=== PATIENT | female | born 1930 | race Caucasian/White ===

== ENCOUNTER 2016-11-28 20:14 | Emergency (ER) | payer SELFPAY ==
[~2016-11-28] VITALS: Ht 137.2 cm; Wt 58.0 kg
[2016-11-28 20:18] VITALS: Ht 137.2 cm; Wt 58.0 kg
--- NOTE | 2016-11-28 21:34 | ERA ---
ER Documentation Chief Complaint Date/Time DATE: 11/28/16 TIME: 21:33 Chief Complaint Back pain HPI The patient is a 86-year-old female, presenting to the ER because of lower back pain after she fell yesterday. She denies any fever, chills, headache, facial pain, neck pain, chest pain, dyspnea, abdominal pain, vomiting, dysuria, diarrhea. She does not smoke or drink Past medical history: Diabetes mellitus, CAD, hypertension Past surgical history: None ROS All systems reviewed and are negative except as per history of present illness. Medications Home Meds Active Scripts Ibuprofen* (Motrin*) 400 Mg Tab, 400 MG PO Q6H Y for PAIN AND OR ELEVATED TEMP, #30 TAB Prov:SYD ALEJANDRA MD 11/29/16 Sulfamethoxazole/Trimethoprim* (Bactrim Ds* Tablet) 1 Each Tablet, 1 TAB PO BID , #20 TAB Prov:SYD ALEJANDRA MD 11/29/16 Allergies Allergies: Coded Allergies: Penicillins (Verified Allergy, Unknown, rash, 11/28/16) Physical Exam Vitals Vital Signs Date Time Temp Pulse Resp B/P Pulse Ox O2 Delivery O2 Flow Rate FiO2 11/29/16 00:55 72 18 176/68 97 Room Air 11/28/16 23:40 81 18 183/75 95 11/28/16 22:11 Nasal Cannula 3 11/28/16 21:42 84 18 189/82 97 Room Air 11/28/16 20:18 100.9 108 17 192/88 94 Physical Exam Const: No acute distress. Head: Atraumatic. Eyes: Normal Conjunctiva. ENT: Normal External Ears, Nose and Mouth. Neck: Full range of motion. No meningismus. Resp: Clear to auscultation bilaterally. Cardio: Regular rate and rhythm, no murmurs. Abd: Soft, non distended, normal bowel sounds, non tender. Skin: No petechiae or rashes. Back: No midline or flank tenderness. Minimal lumbar tenderness, no erythema, no crepitus Ext: No cyanosis, or edema. Neur: Awake and alert. No focal deficit Psych: Normal Mood and Affect. Result Diagram: 11/28/16219911/28/162199 Results 24 hrs Laboratory Tests Test 11/28/16 00:25 11/28/16 21:41 11/28/16 22:00 11/28/16 23:34 Lactic Acid Level 1.4mmol/L 1.8mmol/L Prothrombin Time 12.2Sec Prothrombin Time Ratio 1.0 INR International Normalized Ratio 0.91 Activated Partial Thromboplast Time 22.7Sec White Blood Count 8.310^3/ul Red Blood Count 3.9810^6/ul Hemoglobin 11.7g/dl Hematocrit 36.0% Mean Corpuscular Volume 90.5fl Mean Corpuscular Hemoglobin 29.4pg Mean Corpuscular Hemoglobin Concent 32.5g/dl Red Cell Distribution Width 13.1% Platelet Count 78795^3/UL Mean Platelet Volume 11.0fl Neutrophils % 72.3% Lymphocytes % 18.7% Monocytes % 6.9% Eosinophils % 1.3% Basophils % 0.2% Nucleated Red Blood Cells % 0.0/100WBC Neutrophils # 6.010^3/ul Lymphocytes # 1.610^3/ul Monocytes # 0.610^3/ul Eosinophils # 0.110^3/ul Basophils # 0.010^3/ul Nucleated Red Blood Cells # 0.010^3/ul Sodium Level 137mmol/L Potassium Level 4.3mmol/L Chloride Level 98mmol/L Carbon Dioxide Level 26mmol/L Anion Gap 17 Blood Urea Nitrogen 28mg/dl Creatinine 0.84mg/dl Glucose Level 255mg/dl Calcium Level 9.5mg/dl Total Bilirubin 0.3mg/dl Direct Bilirubin 0.00mg/dl Indirect Bilirubin 0.3mg/dl Aspartate Amino Transf (AST/SGOT) 20IU/L Alanine Aminotransferase (ALT/SGPT) 24IU/L Alkaline Phosphatase 129IU/L Troponin I < 0.012ng/ml Total Protein 8.3g/dl Albumin 4.3g/dl Globulin 4.00g/dl Albumin/Globulin Ratio 1.07 Urine Color LT. YELLOW Urine Clarity CLEAR Urine pH 7.0 Urine Specific [place] 1.010 Urine Ketones NEGATIVE Urine Nitrite NEGATIVE Urine Bilirubin NEGATIVE Urine Urobilinogen 0.2 E.U./dL Urine Leukocyte Esterase 1+ Urine Microscopic RBC 0-2/HPF Urine Microscopic WBC 5-10/HPF Urine Squamous Epithelial Cells RARE Urine Hemoglobin NEGATIVE Urine Glucose >=1000% Urine Total Protein NEGATIVE Test 11/28/16 23:54 Bedside Urine pH (LAB) 7.0 Bedside Urine Protein (LAB) Negative Bedside Urine Glucose (UA) 0.50% Bedside Urine Ketones (LAB) Negative Bedside Urine Blood Negative Bedside Urine Nitrite (LAB) Negative Bedside Urine Leukocyte Esterase (L 1+ Current Medications Medications (Trade) Dose Ordered Sig/Jessica Route PRN Reason Start Time Stop Time Status Last Admin Dose Admin Acetaminophen (Tylenol Tab) 650 mg ONCE STAT PO 11/28/16 21:41 11/28/16 21:43 DC 11/28/16 21:50 Procedures/MDM [place] [id number] Radiology Main Line: [phone] DIAGNOSTIC IMAGING REPORT Patient: BRYN BUSTOS : 1930 Age: 86 Sex: F MR #: [id number] DOS: 11/28/16 214 Ordering MD: SYD ALEJANDRA MD Location: E/R Room/Bed: PROCEDURE: CT lumbar spine without contrast CLINICAL INDICATION: Back pain. TECHNIQUE: A CT scan of the lumbar spine was performed without intravenous contrast. Coronal and sagittal reformatted images were generated. CTDIvol: 16.06 mGy. DLP: 411.71 mGy-cm. One or more of the following dose reduction techniques were used: - Automated exposure control. - Adjustment of the mA and/or kV according to patient size. - Use of iterative reconstruction technique. COMPARISON: None. FINDINGS: The lumbar lordosis is preserved. The vertebral body heights are maintained. Bone mineralization is normal and there is no suspicious osseous lesion. No acute fracture or subluxation is identified. T12-L1: There is minimal vacuum disk phenomenon and anterior disk bulging, but no posterior disk herniation. No spinal canal stenosis or neural foraminal narrowing is identified L1-L2: There is grade 1 degenerative L1 retrolisthesis (4 mm). There is minimal vacuum disk phenomenon and circumferential disk bulging, but no spinal canal stenosis. Mild left neural foraminal narrowing is noted due to disk bulging. L2-L3: There is herniation is seen. There is no spinal canal stenosis. Mild left neural foraminal narrowing is noted due to osteophyte. L3-L4: Circumferential disk bulging leads to mild spinal canal stenosis (9 mm AP canal diameter). There is minimal bilateral neural foraminal narrowing due to disk bulging. L4-L5: Posterior disk bulging and ligamentum flavum thickening lead to moderate spinal canal stenosis (7 mm canal diameter). Mild to moderate bilateral facet arthrosis is also noted. There is mild to moderate bilateral neural foraminal narrowing due to disk bulging and facet arthrosis. L5-S1: There is grade 1 degenerative L5 anterolisthesis (4 mm). Moderate disk space narrowing, vacuum disk phenomenon, circumferential disk bulging are noted. There is no spinal canal stenosis. Moderate bilateral facet arthrosis, disk bulging, and endplate osteophytosis, leading to moderate bilateral neural foraminal narrowing. There are mild arterial calcifications. IMPRESSION: 1. No acute lumbar spine fracture or subluxation. 2. Multilevel degenerative changes, described in detail in the findings. 3. Mild spinal canal stenosis at L3-L4. 4. Moderate spinal canal stenosis at L4-L5. 5. Moderate bilateral neural foraminal narrowing at L5-S1. RPTAT: HTAR .David Maddox MD, MD Date Time Electronically viewed and signed by .David Maddox MD, MD on 11/28/2016 22:57 .R/ CC: SYD ALEJANDRA MD [place] [id number] Radiology Main Line: [phone] DIAGNOSTIC IMAGING REPORT Patient: BRYN BUSTOS : 1930 Age: 86 Sex: F MR #: [id number] DOS: 11/28/16 2141 Ordering MD: SYD ALEJANDRA MD Location: E/R Room/Bed: PROCEDURE: Portable chest x-ray. CLINICAL INDICATION: Sepsis. TECHNIQUE: Portable AP view of the chest. COMPARISON: None. FINDINGS: There are low lung volumes, limiting evaluation of the pulmonary vessels and heart size. No pulmonary edema or conolidation is identified. The cardiac silhouette is magnified. No pleural effusion is seen. There is no pneumothorax. IMPRESSION: 1. No evidence of acute cardiopulmonary disease. RPTAT: HTAR .David Maddox MD, Date Time Electronically viewed and signed by .David Maddox MD, MD on 11/28/2016 22:50 .R/ CC: SYD ALEJANDRA MD EKG: Read by emergency physician Rate/Rhythm: Normal Sinus Rhythm 82 beats/min QRS, ST, T-waves: No ST elevation, no T inversion, PAC Impression: Abnormal EKG MEDICAL MAKING DECISION: The patient is a 86-year-old female, presenting to the ER because of acute back pain, acute cystitis. She was treated with Tylenol for fever with good response The differential diagnoses considered include but are not limited to cholelithiasis, cholecystitis, cystitis, pancreatitis, hepatitis, gastritis, peptic ulcer disease, gastric ulcer, appendicitis, diverticulitis, cholangitis, choledocholithiasis, partial small bowel obstruction. Departure Diagnosis: Primary Impression: UTI (urinary tract infection) Additional Impressions: Back pain Anemia Condition: Good Comments She was discharged with Bactrim DS and Motrin I discussed the findings with the patient. I advised the patient to follow-up with the primary physician in about 1-2 days, sooner if needed and return if any concern. SYD ALEJANDRA MD Nov 28, 2016 21:34
[2016-11-28] MEDS ORDERED: ACETAMINOPHEN 325 MG TAB PO STA (21:41)
[2016-11-28 22:15] LABS: ADD SCAN DIFF NO
[2016-11-28 22:16] LABS: BASOPHILS % 0.2 % (0.0-2.0); EOSINOPHILS # 0.1 10^3/ul (0.0-0.5); EOSINOPHILS % 1.3 % (0.0-7.0); HEMOGLOBIN 11.7 g/dl (12.0-16.0); LYMPHOCYTES # 1.6 10^3/ul (0.8-2.9); LYMPHOCYTES % 18.7 % (15.0-51.0); MEAN CORPUSCULAR HEMOGLOBIN 29.4 pg (29.0-33.0); MEAN CORPUSCULAR HGB CONC 32.5 g/dl (32.0-37.0); MEAN CORPUSCULAR VOLUME 90.5 fl (82.0-101.0); MONOCYTE # 0.6 10^3/ul (0.3-0.9); MONOCYTES % 6.9 % (0.0-11.0); NEUTROPHILS % 72.3 % (39.0-77.0); PLATELET COUNT 198 10^3/UL (140-415); RED BLOOD COUNT 3.98 10^6/ul (4.20-5.40); RED CELL DISTRIBUTION WIDTH 13.1 % (11.5-14.5); WHITE BLOOD COUNT 8.3 10^3/ul (4.8-10.8)
[2016-11-28 22:28] LABS: ALBUMIN 4.3 g/dl (3.3-4.9); CHLORIDE 98 mmol/L (97-110)
[2016-11-28 22:29] LABS: POTASSIUM 4.3 mmol/L (3.5-5.1); SODIUM 137 mmol/L (135-144)
[2016-11-28 22:31] LABS: ALBUMIN/GLOBULIN RATIO 1.07; ALKALINE PHOSPHATASE 129 IU/L (42-121); ANION GAP 17 (8-16); ASPARTATE AMINO TRANSFERASE 20 IU/L (15-46); BILIRUBIN,INDIRECT 0.3 mg/dl (0-1.1); BILIRUBIN,TOTAL 0.3 mg/dl (0.2-1.3); BLOOD UREA NITROGEN 28 mg/dl (7-20); CARBON DIOXIDE 26 mmol/L (21-31); CREATININE 0.84 mg/dl (0.44-1.00); TOTAL PROTEIN 8.3 g/dl (6.1-8.1)
[2016-11-28 22:32] LABS: ALANINE AMINOTRANSFERASE 24 IU/L (13-69); CALCIUM 9.5 mg/dl (8.4-10.2); GLUCOSE 255 mg/dl (70-220)
[2016-11-28 22:43] LABS: TROPONIN-I < 0.012 ng/ml (0.00-0.12)
--- NOTE | 2016-11-28 22:50 | RADRPT ---
PROCEDURE: Portable chest x-ray. CLINICAL INDICATION: Sepsis. TECHNIQUE: Portable AP view of the chest. COMPARISON: None. FINDINGS: There are low lung volumes, limiting evaluation of the pulmonary vessels and heart size. No pulmonar y edema or conolidation is identified. The cardiac silhouette is magnified. No pleural effusion is seen. There is no pneumothorax. IMPRESSION: 1. No evidence of acute cardiopulmonary disease. RPTAT: HTAR .David Maddox MD, MD Date Time Electronically viewed and signed by .David Maddox MD, on 11/28/2016 22:50 .R/
--- NOTE | 2016-11-28 22:57 | RADRPT ---
PROCEDURE: CT lumbar spine without contrast CLINICAL INDICATION: Back pain. TECHNIQUE: A CT scan of the lumbar spine was performed without intravenous contrast. Coronal and s agittal reformatted images were generated. CTDIvol: 16.06 mGy. DLP: 411.71 mGy-cm. One or more of the following dose reduction techniques were used: - Automated exposure control. - Adjustment of the mA and/or kV according to patient size. - Use of iterative reconstruction technique. COMPARISON: None. FINDINGS: The lumbar lordosis is preserved. The vertebral body heights are maintained. Bone mineralization i s normal and there is no suspicious osseous lesion. No acute fracture or subluxation is identified. T12-L1: There is minimal vacuum disk phenomenon and anterior disk bulging, but no posterior disk her niation. No spinal canal stenosis or neural foraminal narrowing is identified L1-L2: There is grade 1 degenerative L1 retrolisthesis (4 mm). There is minimal vacuum disk phenomen on and circumferential disk bulging, but no spinal canal stenosis. Mild left neural foraminal narro wing is noted due to disk bulging. L2-L3: There is herniation is seen. There is no spinal canal stenosis. Mild left neural foraminal narrowing is noted due to osteophyte. L3-L4: Circumferential disk bulging leads to mild spinal canal stenosis (9 mm AP canal diameter). T here is minimal bilateral neural foraminal narrowing due to disk bulging. L4-L5: Posterior disk bulging and ligamentum flavum thickening lead to moderate spinal canal stenosi s (7 mm canal diameter). Mild to moderate bilateral facet arthrosis is also noted. There is mild t o moderate bilateral neural foraminal narrowing due to disk bulging and facet arthrosis. L5-S1: There is grade 1 degenerative L5 anterolisthesis (4 mm). Moderate disk space narrowing, vacuu m disk phenomenon, circumferential disk bulging are noted. There is no spinal canal stenosis. Mode rate bilateral facet arthrosis, disk bulging, and endplate osteophytosis, leading to moderate bilate ral neural foraminal narrowing. There are mild arterial calcifications. IMPRESSION: 1. No acute lumbar spine fracture or subluxation. 2. Multilevel degenerative changes, described in detail in the findings. 3. Mild spinal canal stenosis at L3-L4. 4. Moderate spinal canal stenosis at L4-L5. 5. Moderate bilateral neural foraminal narrowing at L5-S1. RPTAT: HTAR .David Maddox MD, Date Time Electronically viewed and signed by .David Maddox MD, on 11/28/2016 22:57 .R/
[2016-11-28 23:36] LABS: INR 0.91; PARTIAL THROMBOPLASTIN TIME 22.7 Sec (25.0-35.0); PROTIME 12.2 Sec (12.2-14.2)
[2016-11-28 23:45] LABS: ADD UMIC YES; URINE BILIRUBIN (Dip) NEGATIVE (NEGATIVE); URINE BLOOD (Dip) NEGATIVE (NEGATIVE); URINE COLOR LT. YELLOW (YELLOW); URINE GLUCOSE (Dip) >=1000 % (NEGATIVE); URINE KETONES (Dip) NEGATIVE (NEGATIVE); URINE LEUKOCYTE ESTERASE (Dip) 1+ (NEGATIVE); URINE NITRITE (Dip) NEGATIVE (NEGATIVE); URINE TOTAL PROTEIN (Dip) NEGATIVE (NEGATIVE); URINE UROBILINOGEN (Dip) 0.2 E.U./dL (0.1-1.0)
[2016-11-28 23:53] LABS: SQUAMOUS EPITHELIAL CELL,UR RARE; URINE RBCS 0-2 /HPF (0)
[2016-11-28 23:54] LABS: URINE BLOOD (Dip) POC Negative (NEGATIVE)
[2016-11-29] MEDS ORDERED: IBUP400T22 PO (00:19)
[2016-11-29] MEDS ORDERED: SULF1TAB31 PO (00:19)
[2016-11-29 00:55] VITALS: BP 176/68; PULSE 72; RESP 18
== END 2016-11-29 00:55 | disposition home or self-care (01) ==
LOC: E/R 20:14
DX: N39.0 Urinary tract infection, site not specified (principal); D64.9 Anemia, unspecified; E11.9 Type 2 diabetes mellitus without complications; I25.10 Atherosclerotic heart disease of native coronary artery without angina pectoris; I10 Essential (primary) hypertension
CPT/HCPCS: 36415; 71010; 72131; 80053; 81001; 81003; 83605; 84484; 85025; 85610; 85730; 87040; 93005

== ENCOUNTER 2017-06-23 23:37 | Emergency (ER) | payer SELFPAY ==
[~2017-06-23] VITALS: Ht 160 cm; Wt 53.3 kg
[~2017-06-23 23:37] MED LIST: IBUP400T22 PO; SULF1TAB31 PO
[2017-06-23 23:43] VITALS: Ht 160 cm; Wt 53.3 kg
== END 2017-06-24 00:46 | disposition left against medical advice (07) ==
LOC: E/R 23:37
DX: Z53.21 Procedure and treatment not carried out due to patient leaving prior to being seen by health care provider (principal)